=== PATIENT | female | born 1990 | race Caucasian/White ===

== ENCOUNTER 2020-03-04 14:36 | Outpatient (REF) | payer OTHER, SELFPAY ==
[2020-03-04 16:10] LABS: COVID-19 Test Negative (Negative); IDNOW Serial# 55D5AD1C
== END 2020-03-04 14:37 | disposition home or self-care (01) ==
LOC: HO.LAB 14:36
PROVIDERS: Visit Provider Internal Medicine
DX: Z20.828 Contact with and (suspected) exposure to other viral communicable diseases (principal)
CPT/HCPCS: 87635; C9803

== ENCOUNTER 2021-04-05 10:44 | Outpatient (REF) | payer OTHER, SELFPAY ==
[2021-04-05 11:17] LABS: COVID-19 Test Positive (Negative); IDNOW Serial# 16C4AD1C
== END 2021-04-05 10:45 | disposition home or self-care (01) ==
LOC: HO.LAB 10:44
PROVIDERS: Visit Provider Internal Medicine
DX: Z20.822 Contact with and (suspected) exposure to COVID-19 (principal)
CPT/HCPCS: 87635; C9803

== ENCOUNTER 2022-11-27 10:54 | Outpatient (AMB) | payer OTHER, SELFPAY ==
--- NOTE | 2022-11-27 11:33 | AM.OFFWIN_ITS ---
Intake Vital Signs 11/27/22 11:42 Height 5 ft 3 in Weight 313 lb BMI 55.4 BP 130/80 Blood Pressure Location Rt brachial Position Sitting Pulse 78 Pulse Source Pulse Oximeter Temp 98.1 F Temp Source Temporal Artery Scan Pulse Oximetry (%) 96 Oxygen Delivery Method Room Air Intake Visit Reasons: EP ?Strep Throat Intake Note: pt is here for c/o sore throat, possible strep throat Patient Tobacco Use Status: Never used Tobacco Allergies No Known Allergies Allergy (Verified 11/27/22 12:04) Medication List - Last Reconciled 11/27/22 by Be Danielson MD loratadine 10 mg PO DAILY omeprazole 40 mg PO DAILY Do you need a note to return to daycare/school/sports/work: Yes HPI EP ?Strep Throat HPI Details Patient presents for a sick visit. Reporting symptoms of sinus con gestion, sore throat and difficulty swallowing. Low-grade fever. No family member is sick. No recent travel. Patient reports symptoms of malaise and fatigue. [facility] Social History Patient Tobacco Use Status: Never used Tobacco Physical Exam Vital Signs: Last Vital Signs Temp 98.1 F 11/27/22 11:42 Pulse 78 11/27/22 11:42 BP 130/80 11/27/22 11:42 Pulse Ox 96 11/27/22 11:42 Oxygen Delivery Method Room Air 11/27/22 11:42 BMI result Body Mass Index 55.4 Const General: cooperative and healthy appearing Nutritional Appearance: well nourished Orientation/consciousness: patient oriented x3 Limitations: no limitations HEENT Head: Yes normal to inspection Eyes General: appearance normal, both eyes and all related structures Neck Neck: Yes normal visual inspection Chest Chest palpation & inspection: normal palpation of entire chest wall Resp Effort & Inspection: normal respiratory effort Neuro General: patient oriented x3 Results AMB Rapid Strep AMB Rapid Strep Negative Last Edit by Eder Hamilton CMA on 11/27/22 11 :51 Results Reviewed Results Reviewed: Laboratory Last Values Strep Scn [facility] Negative 11/27/22 11:50 Assessment & Plan Assessment & Plan (1) Upper respiratory tract infection: Code(s): J06.9 - Acute upper respiratory infection, unspecified Plan: Antibiotics ordered. Increase fluid intake. Tylenol for aches and pains. If symptoms worsen, follow-up here for a recheck. Orders: Orders AMB Rapid Strep Screen Today Z13.9 - Encounter for screening, unspecified Coding Level of Care Code Est Pt Level 3 (26582) Diagnoses Upper respiratory tract infection J06.9
[2022-11-27 11:42] VITALS: BP 130/80; PULSE 78; TEMP 36.7; O2SAT 96; BMI 55.4
== END 2022-11-27 12:29 | disposition home or self-care (01) ==
PROVIDERS: PCP Internal Medicine; Visit Provider Internal Medicine
DX: J06.9 Acute upper respiratory infection, unspecified (principal); J02.9 Acute pharyngitis, unspecified
CPT/HCPCS: 87880; 99213

== ENCOUNTER 2023-02-21 12:53 | Outpatient (AMB) | payer OTHER, SELFPAY ==
--- NOTE | 2023-02-21 13:03 | AM.OFFWIN_ITS ---
Intake Vital Signs 02/21/23 13:04 Height 5 ft 3 in Weight 326 lb 8 oz BMI 57.8 BP 124/72 Blood Pressure Location Rt brachial Position Sitting Pulse 103 H Pulse Source Pulse Oximeter Temp 97.3 F Temp Source Temporal Artery Scan Pulse Oximetry (%) 98 Oxygen Delivery Method Room Air Intake Visit Reasons: EP sore throat/strepth [phone] Intake Note: Pt is here c/o sore throat for the past four days. Patient Tobacco Use Status: Never used Tobacco Allergies No Known Allergies Allergy (Verified 02/21/23 13:03) Do you need a note to return to daycare/school/sports/work: No HPI HPI Comments History of Present Illness Details She presents to office with ST complaint Boyfriend + sick first She started with symptoms 4 days ago Lost voice Minimal congestion feels like white spots in throat She denies fever or chills + fatigue + cough with mucus DayQuil without relief PFSH Social History Patient Tobacco Use Status: Never used Tobacco Review of Systems Const Denies body aches, Reports fatigue and Denies fever(s) Eyes Denies blurry vision ENT Denies otalgia, Reports nasal congestion, Reports sore throat, Denies throat swelling and Denies tongue swelling Card Denies chest pain and Denies dyspnea Resp Reports cough and Denies dyspnea Endo Reports fatigue Aller/Immun Denies throat swelling and Denies tongue swelling Physical Exam Vital Signs: Last Vital Signs Temp 97.3 F 02/21/23 13:04 Pulse 103 H 02/21/23 13:04 BP 124/72 02/21/23 13:04 Pulse Ox 98 02/21/23 13:04 Oxygen Delivery Method Room Air 02/21/23 13:04 BMI result Body Mass Index 57.8 General: Non-toxic, NAD. Speaking full sentences. Skin: Warm dry throughout Eye: EOMI HENT: Airway patent. Uvula midline. + slight pharyngeal erythema without exudates or edema. 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 + 2 L sided tonsillar stones Bilateral canals clear. TM non-erythematous, non-bulging. No TM perforation or h emotympanum noted. Respiratory: CTA bilaterally. No wheezes, rales or rhonchi Cardiac: RRR. No murmur MSK: Full ROM extremities. Neurology: A/O. No aphasia or facial droop. Gait without abnormality Psych: Good mood and affect Results AMB Rapid Strep AMB Rapid Strep Negative Last Edit by Kristin Cosme CMA on 02/21/23 13:23 Results Reviewed Results Reviewed: Laboratory Last Values Strep Scn [facility] Negative 02/21/23 13:22 Assessment & Plan Assessment & Plan (1) Upper respiratory tract infection: Code(s): J06.9 - Acute upper respiratory infection, unspecified Qualifiers: URI type: unspecified viral URI Qualified Code(s): J06.9 - Acute upper respiratory infection, unspecified (2) Tonsil stone: Code(s): J35.8 - Other chronic diseases of tonsils and adenoids Plan Patient seen and evaluated. Rapid strep neg Lungs CTA OTC meds Warm salt water gargles FU PCP Patient gave verbal understanding and had no additional questions or concerns at time of discharge All questions answered Orders: Orders AMB Rapid Strep Screen 02/21/23 Z13.9 - Encounter for screening, unspecified Coding Level of Care Code Est Pt Level 3 (37571) Diagnoses Viral upper respiratory tract infection J06.9 URI type: unspecified viral URI Tonsil stone J35.8
[2023-02-21 13:04] VITALS: BP 124/72; PULSE 103; TEMP 36.3; O2SAT 98; BMI 57.8
== END 2023-02-21 13:57 | disposition home or self-care (01) ==
PROVIDERS: PCP Internal Medicine; Visit Provider Physician Assistant
DX: J06.9 Acute upper respiratory infection, unspecified (principal); J35.8 Other chronic diseases of tonsils and adenoids
CPT/HCPCS: 87880; 99213

== ENCOUNTER 2024-01-22 08:51 | Outpatient (AMB) | payer OTHER, SELFPAY ==
--- NOTE | 2024-01-22 10:14 | MHC.OFFWIV ---
Intake Vital Signs 01/22/24 10:19 Height 5 ft 3 in Weight 324 lb BMI 57.4 BP 116/78 Blood Pressure Location Lt brachial Position Sitting Pulse 97 Pulse Source Pulse Oximeter Temp 98.1 F Temp Source Oral Pulse Oximetry (%) 97 Oxygen Delivery Method Room Air Intake Visit Reasons: EP cough, congestion, lung pain [phone] Patient Tobacco Use Status: Never used Tobacco Allergies No Known Allergies Allergy (Verified 02/21/23 13:03) HPI HPI Comments History of Present Illness Details Patient is a 33-year-old female complaining 4 days of a productive cough with yellow sputum, chest congestion, muffled ears, shortness of breath and a sore throat. She denies any sinus pain head congestion fevers or chills. She is able to eat and drink normally. She did test at home for COVID and it was negative yesterday. She has been taking DayQuil, NyQuil, cough drops and honey with tea with some relief in her symptoms. She tells me her brother is home sick with similar symptoms and is getting better without antibiotics. She also tells me that she gets strep a lot in sometimes when she gets strep, there are no white spots in the back of her throat. [facility] Social History Patient Tobacco Use Status: Never used Tobacco Review of Systems Const All systems reviewed & are unremarkable except as noted in HPI and below Physical Exam Vital Signs: Last Vital Signs Temp 98.1 F 01/22/24 10:19 Pulse 97 01/22/24 10:19 BP 116/78 01/22/24 10:19 Pulse Ox 97 01/22/24 10:19 Oxygen Delivery Method Room Air 01/22/24 10:19 BMI result Body Mass Index 57.4 Const General: cooperative, healthy appearing, comfortable and no acute distress Orientation/consciousness: patient oriented x3 Limitations: no limitations HEENT Head: Yes normal to inspection Ears: hearing grossly normal bilaterally, external ears normal and TM's normal bilaterally General nose exam: Normal external nose present, Normal nares present and No nasal discharge present Face and sinus: Yes normal facial exam and Yes sinuses nontender Mouth: Normal oral and palatal mucosa present and moist mucous membranes Throat: Yes tonsils normal, Yes uvula midline and Yes posterior oropharynx abnormal (Erythema) Eyes General: appearance normal, both eyes and all related structures Neck Neck: Yes normal visual inspection Resp Effort & Inspection: normal respiratory effort, able to speak in complete sentences, Actively coughing, no respiratory distress, not tachypneic, no tripod positioning and no use of accessory muscles Auscultation: clear to auscultation bilaterally Cardio Rate: regular rate Rhythm: regular rhythm Heart sounds: normal S1 and S2 Skin General skin exam: no rashes or lesions noted Neuro General: patient oriented x3 Extrem General: Yes normal to inspection and Yes no clubbing, cyanosis or edema Assessment & Plan Assessment & Plan (1) Upper respiratory tract infection: Code(s): J06.9 - Acute upper respiratory infection, unspecified Qualifiers: URI type: unspecified viral URI Qualified Code(s): J06.9 - Acute upper respiratory infection, unspecified Plan: Vital signs are stable, patient well-appearing, as pt states she does get strep often and doesn't always have exudates, we will get a throat culture as we do not have the rapid strep test in the office today. Also tested for flu COVID and RSV and we will send an inhaler to patient's pharmacy for her shortness of breath. Plan See above Orders: Orders Throat Culture Today J02.9 - Acute pharyngitis, unspecified SARS-CoV2/FLU/RSV Today J06.9 - Acute upper respiratory infection, unspecified Medications: New albuterol sulfate 90 mcg/actuation 2 puffs inhalation Q6H PRN 8.5 grams 0RF shortness of breath or wheezing or cough Coding Level of Care Code New Pt Level 3 (38260) Diagnoses Viral upper respiratory tract infection J06.9 URI type: unspecified viral URI
[2024-01-22 10:19] VITALS: BP 116/78; PULSE 97; TEMP 36.7; O2SAT 97; BMI 57.4
== END 2024-01-22 10:46 | disposition home or self-care (01) ==
PROVIDERS: PCP Internal Medicine; Visit Provider Physician Assistant
DX: J06.9 Acute upper respiratory infection, unspecified (principal)

== ENCOUNTER 2024-01-22 08:51 | Outpatient (REF) | payer OTHER, SELFPAY ==
[2024-01-22 14:21] LABS: Influenza A PCR NEGATIVE (Negative); Influenza B PCR NEGATIVE (Negative); Resp Syncy Virus RNA Qual PCR NEGATIVE (Negative); SARS COV2 PCR INHOUSE NEGATIVE (Negative)
== END 2024-01-22 08:52 | disposition home or self-care (01) ==
LOC: HO.LAB 08:51
PROVIDERS: PCP Internal Medicine; Visit Provider Physician Assistant
DX: J06.9 Acute upper respiratory infection, unspecified (principal)
CPT/HCPCS: 0241U; 87070